=== PATIENT | male | born 1935 | race Caucasian/White ===

== ENCOUNTER 2020-10-31 09:55 | Emergency (ER) | payer OTHER ==
[2020-10-31 10:52] LABS: HEMOGLOBIN 15.9 gm/dl (14.0-17.5); RED BLOOD COUNT 4.82 M/UL (4.20-5.50); WHITE BLOOD COUNT 9.2 K/UL (4.5-11.0)
[2020-10-31] MEDS ORDERED: OMNICEF 300 MG300 MG PO (14:55)
== END 2020-10-31 15:10 | disposition home or self-care (01) ==
LOC: ER1 09:55
PROVIDERS: Family Medicine
DX: R31.9 Hematuria, unspecified (principal); I10 Essential (primary) hypertension; Z79.899 Other long term (current) drug therapy
CPT/HCPCS: 80053; 81001; 85025; 85610; 99284; Q9967